=== PATIENT | female | born 1955 | race African-American/Black ===

== ENCOUNTER 2019-10-13 11:31 | Emergency (ER) | payer OTHER ==
[~2019-10-13] VITALS: Ht 152.4 cm; Wt 95.3 kg
[~2019-10-13 11:31] MED LIST: ALBU8.5H5 IH; ALBU8.5H7 IH; ALPR0.5T PO; ASPI-667 PO; BUDE0.5A3 IH; BUDE10.2 IH; CYCL10TA2 PO; DOCU-123 PO; FLUT1DIS5 IH; HYDR-3470 PO; Ipratropium/Albuterol Sulfate IH; LEVO500T51 PO; LEVO500T8 PO; NITR0.4T26 SL; NITR1PAT26 TD; Nicotine TD
--- NOTE | 2019-10-13 11:40 | NUR ---
Pt has not had medications for about 2 weeks. She has not checked BG in 2 weeks. Came into ER to have medications refilled. Pt VT=256/101 currently. Pt states she has a ENGLE rated @ 6:10. Also c/o dizziness, exp when she is up and walking around.
[2019-10-13 12:10] VITALS: BP 151/101
[2019-10-13 12:11] VITALS: BP 151/101
[2019-10-13 12:58] VITALS: BP 146/99
--- NOTE | 2019-10-13 12:59 | ER.PDOC ---
General Chief Complaint: Dyspnea/Respdistress Stated Complaint: SICK TRAVEL OUT OF US: No Time seen by MD: 12:51 Source: patient Exam Limitations: no limitations History of Present Illness Initial Comments Here for medication refill. She wants her inhalers, Metformin and Metoprolol refilled because she ran out for 2 Months. Associated Symptoms: denies symptoms Allergies: Coded Allergies: No Known Allergies (Unverified , 04/25/16) Home Meds Active Scripts [Ipratropium/Albuterol Sulfate] 3 ML AMPUL.NEB No Conflict Check, 3 ML IH RTQID Prov:STEPHANIE ABARCA MD 10/12/14 Docusate Sodium (COLACE) 100 Mg Capsule, 100 MG PO BID, #30 CAPSULE Prov:STEPHANIE ABARCA MD 10/12/14 Budesonide (PULMICORT) 0.5 Mg/2 Ml Ampul.neb, 0.5 MG IH BID, #30 BOTTLE Prov:STEPHANIE ABARCA MD 10/12/14 Alprazolam (XANAX) 0.5 Mg Tablet, 0.5 MG PO QID PRN for ANXIETY, #30 TABLET Prov:STEPHANIE ABARCA MD 10/12/14 Reported Medications Nitroglycerin (NITROGLYCERIN PATCH) 1 Each Patch.td24, 1 EACH TD DAILY 04/25/16 Budesonide/Formoterol Fumarate (SYMBICORT 160-4.5 MCG INHALER) 10.2 Gm Hfa.aer.ad, 2 PUFF IH BID 10/03/15 Albuterol Sulfate (PROAIR HFA) 8.5 Gm Hfa.aer.ad, 8.5 GM IH PRN PRN for SHORTNESS OF BREATH 10/03/15 Fluticasone/Salmeterol (ADVAIR 500-50 DISKUS) 1 Each Disk.w.dev, 1 PUFF IH BID 10/03/15 Aspirin (ASPIRIN) 81 Mg Tab.chew, 1 TAB PO DAILY, #90 TAB 3 Refills 06/07/14 Past Medical History Medical History: COPD, diabetes, hypertension Surgical History: cardiac cath, pacemaker/ICD Social History Alcohol Use: none Drug Use: none Review of Systems Constitutional: no symptoms reported EENTM: no symptoms reported Respiratory: no symptoms reported Cardiovascular: no symptoms reported Gastrointestinal: no symptoms reported All Other Systems: Reviewed and Negative Physical Exam General Appearance: No Apparent Distress Neck: Non-Tender, Full Range of Motion Respiratory: chest non-tender, lungs clear, normal breath sounds, no respiratory distress, no accessory muscle use CVS: reg rate & rhythm, no murmur, no gallop, pulses nml, nml capillary refill Gastrointestinal: Normal Bowel Sounds, No Organomegaly, No Pulsatile Mass, Non Tender Back: Normal Inspection Extremities: Normal Range of Motion 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 She told me that she has an appointment this week with a PCP. Course Sepsis Screening Results: Posi: POSITIVE SEPSIS RISK Vitals & review Data Vital Sign - Last 24 Hours 10/13/19 10/13/19 10/13/19 11:34 12:10 12:11 Temp 98.5 98.5 98.5 Pulse 60 60 60 Resp 22 22 22 B/P (MAP) 151/101 (118) Pulse Ox 99 99 O2 Delivery Room Air O2 Sat by Pulse Oximetry: 99 Departure Time of Disposition: 12:55 Disposition: 01 HOME, SELF-CARE Impression: Primary Impression: Uncontrolled diabetes mellitus Additional Impressions: Uncontrolled hypertension Non compliance with medical treatment Chronic obstructive pulmonary disease (COPD) Condition: Stable Referrals: SANDHYA MEEKS (PCP) PRIMARY CARE PROVIDER Additional Instructions: Metformin, Metoprolol and inhalers refilled. F/U with your PCP this week as scheduled. Duration or Time Spent with Pa: 20 mins Problem Qualifiers Primary Impression: Uncontrolled diabetes mellitus Diabetes mellitus type: other specified (including RONEL) Glycemic state: with hyperglycemia Qualified Codes: E13.65 - Other specified diabetes mellitus with hyperglycemia Additional Impressions: Chronic obstructive pulmonary disease (COPD) COPD type: unspecified COPD Qualified Codes: J44.9 - Chronic obstructive pulmonary disease, unspecified TUNG JONES MD Oct 13, 2019 12:59
== END 2019-10-13 13:10 | disposition home or self-care (01) ==
LOC: ER 11:31
DX: E11.65 Type 2 diabetes mellitus with hyperglycemia (principal); I10 Essential (primary) hypertension; J44.9 Chronic obstructive pulmonary disease, unspecified; Z76.0 Encounter for issue of repeat prescription; Z79.82 Long term (current) use of aspirin; Z79.899 Other long term (current) drug therapy; Z91.14 Patient's other noncompliance with medication regimen; Z91.19 Patient's noncompliance with other medical treatment and regimen; Z95.0 Presence of cardiac pacemaker
CPT/HCPCS: 99284

== ENCOUNTER 2019-10-30 09:48 | Emergency (ER) | payer OTHER ==
[~2019-10-30] VITALS: Ht 152.4 cm; Wt 95.3 kg
[2019-10-30 10:01] VITALS: BP 111/54
[2019-10-30 10:06] VITALS: BP 111/54
[2019-10-30] MEDS ORDERED: DUO 0.5-3(2.5) MG/3 ML IH STA (10:24)
[2019-10-30] MEDS ORDERED: SOLU-MEDROL IM STA (10:24)
[2019-10-30] MEDS ORDERED: DECADRON IH STA (10:24)
[2019-10-30] MEDS ORDERED: SOLU-MEDROL ONE (10:28)
[2019-10-30] MEDS ORDERED: DECADRON ONE (10:29)
[2019-10-30] MEDS ORDERED: DUO 0.5-3(2.5) MG/3 ML IH ONE (10:29)
--- NOTE | 2019-10-30 10:37 | PCM.EKG ---
[facility] Test Date: 2019-10-30 Test Time: 10:33:55 Pat Name: JAREN CURTIS Department: Room: Gender: F Refractory Specialist: [place] : 1955 Requested By: TUNG JONES Order Number: [id number] Reading MD: Tung JONES Measurements Intervals [place] Rate: 60 P: NM: 181 QRS: 74 QRSD: 94 T: 67 QT: 441 QTc: 441 Interpretive Statements Atrial-paced rhythm Consider left ventricular hypertrophy Abnrm T, consider ischemia, anterolateral lds No previous ECG available for comparison Electronically Signed On 11-01-2019 5:17:07 INFORMATION STRATEGIST by Tung JONES Please click the below link to view image of tracing.
--- NOTE | 2019-10-30 10:39 | ER.PDOC ---
General Chief Complaint: Requesting Medical Care Stated Complaint: DIFF BREATHING, CONGESTION, COUGH. FEVER. HP Time seen by MD: 10:37 Source: patient Exam Limitations: no limitations History of Present Illness Initial Comments Fever, cough and congestion for 3 days. Timing/Duration: gradual Severity: moderate Associated Symptoms: fever/chills, runny nose, cough Prior symptoms/Treatment: Similar symptoms previous Allergies: Coded Allergies: No Known Allergies (Unverified , 04/25/16) Home Meds Active Scripts [Ipratropium/Albuterol Sulfate] 3 ML AMPUL.NEB No Conflict Check, 3 ML IH RTQID Prov:STEPHANIE ABARCA MD 10/12/14 Docusate Sodium (COLACE) 100 Mg Capsule, 100 MG PO BID, #30 CAPSULE Prov:STEPHANIE ABARCA MD 10/12/14 Budesonide (PULMICORT) 0.5 Mg/2 Ml Ampul.neb, 0.5 MG IH BID, #30 BOTTLE Prov:STEPHANIE ABARCA MD 10/12/14 Alprazolam (XANAX) 0.5 Mg Tablet, 0.5 MG PO QID PRN for ANXIETY, #30 TABLET Prov:STEPHANIE ABARCA MD 10/12/14 Reported Medications Nitroglycerin (NITROGLYCERIN PATCH) 1 Each Patch.td24, 1 EACH TD DAILY 04/25/16 Budesonide/Formoterol Fumarate (SYMBICORT 160-4.5 MCG INHALER) 10.2 Gm Hfa.aer.ad, 2 PUFF IH BID 10/03/15 Albuterol Sulfate (PROAIR HFA) 8.5 Gm Hfa.aer.ad, 8.5 GM IH PRN PRN for SHORTNESS OF BREATH 10/03/15 Fluticasone/Salmeterol (ADVAIR 500-50 DISKUS) 1 Each Disk.w.dev, 1 PUFF IH BID 10/03/15 Aspirin (ASPIRIN) 81 Mg Tab.chew, 1 TAB PO DAILY, #90 TAB 3 Refills 06/07/14 Constitutional: see HPI EENTM: see HPI Respiratory: see HPI Cardiovascular: no symptoms reported Gastrointestinal: no symptoms reported All Other Systems: Reviewed and Negative Past Medical History Medical History: asthma, coronary artery disease, cardiac problems, COPD, diabetes, heart attack, hypertension, other Surgical History: cardiac cath, pacemaker/ICD Social History Alcohol Use: occassionally Drug Use: none Physical Exam General Appearance: alert, no distress Nose: rhinorrhea Neck: nml inspection, supple Respiratory: no resp.distress, wheezes Abdomen: non-tender, no organomegaly CVS: reg rate & rhythm, heart sounds nml Skin: color nml, no rash, warm/dry Extremities: non-tender, nml ROM, no pedal edema NEURO/PSYCH: oriented x 3, CN's nml as tested, motor nml, sensation nml, mood/affect nml Results/Orders Results/Orders Orders - TUNG JONES MD Cbc With Auto Diff (10/30/19 10:24) Comprehensive Metabolic Panel (10/30/19 10:24) Probnp B-Type Reduction Furnace Operator Helper (10/30/19 10:24) Troponin I (10/30/19 10:24) Blood Culture (10/30/19 10:24) Ekg-Routine (10/30/19 10:24) Xr Chest 2v (10/30/19 10:24) Ipratropium/Albuterol Sulfate (Duo 0.5-3 (10/30/19 10:24) Dexamethasone Sodium Phosphate (Decadron (10/30/19 10:24) Methylprednisolone Sod Succ (Solu-Medrol (10/30/19 10:24) Methylprednisolone Sod Succ (Solu-Medrol (10/30/19 10:28) Ipratropium/Albuterol Sulfate (Duo 0.5-3 (10/30/19 10:29) Dexamethasone Sodium Phosphate (Decadron (10/30/19 10:29) Arterial Blood Gas (10/30/19 10:35) Vital Signs Date Time Temp Pulse Resp B/P (MAP) Pulse Ox O2 Delivery O2 Flow Rate FiO2 10/30/19 10:44 61 20 99 10/30/19 10:44 61 20 97 10/30/19 10:06 98.8 60 20 10/30/19 10:01 98.8 60 20 111/54 (73) 96 Room Air 10/30/19 10:01 98.8 60 20 96 Administered Medications Medications (Trade) Dose Ordered Sig/Amanda Route PRN Reason Start Time Stop Time Status Last Admin Dose Admin Albuterol/ Ipratropium (Duo 0.5-3(2.5) Mg/3 ml) 3 ml STAT STAT IH 10/30/19 10:24 10/30/19 10:27 DC 10/30/19 10:39 3 ML Methylprednisolone Sodium Succinate (Solu-Medrol) 125 mg STAT STAT IM 10/30/19 10:24 10/30/19 10:27 DC 10/30/19 10:32 125 MG Laboratory Tests Test 10/30/19 10:36 10/30/19 10:50 White Blood Count 4.9 10^3/uL (4.5-11.0) Red Blood Count 6.31 10^6/uL (4.00-5.20) H Hemoglobin 15.8 g/dL (12.0-15.0) H Hematocrit 46.7 % (36.0-46.0) H Mean Corpuscular Volume 74.0 fL (78-100) L Mean Corpuscular Hemoglobin 25.0 pg (26-34) L Mean Corpuscular Hemoglobin Concent 33.8 g/dL (33-37) Red Cell Distribution Width 14.9 % (11.5-14.5) H Platelet Count 239 10^3/uL (150-400) Mean Platelet Volume 9.6 fL (7.8-11.0) Neutrophils (%) (Auto) 54.6 % (41.0-85.0) Lymphocytes (%) (Auto) 29.2 % (24.0-44.0) Monocytes (%) (Auto) 12.9 % (5.0-12.0) H Neutrophils # (Auto) 2.7 10^3/uL (1.8-7.7) Lymphocytes # (Auto) 1.4 10^3/uL (1.0-4.8) Monocytes # (Auto) 0.6 10^3/uL (0.3-0.8) Absolute Immature Granulocyte (auto 0.01 10^3 u/L (0-2) Absolute Eosinophils (auto) 0.1 10^3/uL (0.0-0.2) Immature Granulocytes % 0.20 % (0.00-0.50) Eosinophils % 2.5 % (0.0-5.0) Basophils % 0.6 % (0.0-0.2) H Basophils # 0.0 10^3/uL (0.0-0.1) Sodium Level 141 mmol/L (132-145) Potassium Level 3.4 mmol/L (3.6-5.2) L Chloride Level 102.0 mmol/L (96-109) Carbon Dioxide Level 28.2 mmol/L (20.0-32) Anion Gap 14.2 Blood Urea Nitrogen 19 mg/dL (7-18) H Creatinine 0.81 mg/dL (0.59-1.40) Estimated GFR () 86.1 (>/=60) BUN/Creatinine Ratio 23.0 Glucose Level 149 mg/dL (70-110) H Calcium Level 8.9 mg/dL (8.4-10.5) Total Bilirubin 0.3 mg/dL (0.2-1.0) Aspartate Amino Transferase (AST) 18 U/L (0-35) Alanine Aminotransferase (ALT) 25 U/L (12-78) Alkaline Phosphatase 76 U/L (50-136) Troponin I < 0.02 ng/mL (0.00-0.05) Pro-B-Type Natriuretic Peptide 341 pg/mL (0-125) H Total Protein 7.5 g/dL (6.4-8.2) Albumin 3.8 g/dL (3.4-5.0) Globulin 3.7 Blood Gas Sample Site LEFT RADIAL ARTERY Blood pH 7.470 (7.350-7.450) Blood Gas PCO2 34.7 mmHg (35.0-45.0) L Blood Gas PO2 64.6 mmHg (80.0-100.0) L Blood Gas HCO3 24.7 mmol/L (22.0-26.0) Blood Gas Base Excess 1.6 mmol/L (-2.0-2.0) Sacha Test POSITIVE Arterial Blood Oxygen Saturation 93.3 % (94.0-97.00) L Deoxyhemoglobin 6.7 % (0.0-5.0) H Carboxyhemoglobin 0.3 % (0.0-3.9) Methemoglobin 0.2 % (0.00-5.0) Total Hemoglobin 16.5 % (12.0-17.8) Total Oxygen Concentration 21.5 % (13.5-17.5) H Blood Gas Temperature 37.0 Oxygen Delivery Method ROOM AIR FiO2 21.0 % (20-101) Total Carbon Dioxide 25.8 mmol/L (23-27) EKG/XRAY/CT/US XRAY: chest (No active disease) Departure Time of Disposition: 11:34 Disposition: 01 HOME, SELF-CARE Impression: Primary Impression: COPD exacerbation Condition: Improved Referrals: FELICITA THOMAS (PCP) PRIMARY CARE PROVIDER Additional Instructions: Z pack Prednisone Mucinex DM OTC as directed Increase breathing treatments to every 4 hours for 1 week F/U with your PCP in 2-3 days Return to ED if worsening symptoms or concerns Duration or Time Spent with Pa: 45 mins KAREN,TUNG Richards MD Oct 30, 2019 10:39
[2019-10-30 10:45] LABS: BASOPHIL % 0.6 % (0.0-0.2); EOSINOPHIL # 0.1 10^3/uL (0.0-0.2); EOSINOPHIL % 2.5 % (0.0-5.0); LYMPHOCYTES # 1.4 10^3/uL (1.0-4.8); LYMPHOCYTES % 29.2 % (24.0-44.0); MONOCYTES # 0.6 10^3/uL (0.3-0.8); MONOCYTES % 12.9 % (5.0-12.0); NEUTROPHIL # 2.7 10^3/uL (1.8-7.7); NEUTROPHILS % 54.6 % (41.0-85.0); RED CELL DISTRIBUTION WIDTH 14.9 % (11.5-14.5)
[2019-10-30 11:01] LABS: ABG PCO2 34.7 mmHg (35.0-45.0); BE(B) 1.6 mmol/L (-2.0-2.0); HCO3act 24.7 mmol/L (22.0-26.0); pO2 64.6 mmHg (80.0-100.0)
--- NOTE | 2019-10-30 11:06 | DIREP ---
PROCEDURE:CHEST 2 VIEWS COMPARISON:[facility], CR, XRAY CHEST SINGLE VW, 01/09/2017, 11:04 PM. INDICATIONS:Cough FINDINGS: LUNGS/PLEURA:No significant pulmonary parenchymal abnormalities. No effusions. VASCULATURE:Normal. Unremarkable pulmonary vasculature. Atherosclerotic disease of the thoracic aorta is noted. CARDIAC:Normal. No cardiac silhouette abnormality or cardiomegaly. Pacemaker leads are unchanged. MEDIASTINUM:Normal. No visible mass or adenopathy. BONES:Mild thoracic spondylosis. OTHER:Negative. CONCLUSION: 1. No active cardiopulmonary disease demonstrated. Dictated by: Demetrius Akhtar M.D. on 10/30/2019 at 11:03 AM
[2019-10-30 11:13] LABS: ALANINE AMINOTRANSFERASE(ML) 25 U/L (12-78); ALKALINE PHOSPHATASE 76 U/L (50-136); ASPARTATE AMINO TRANSFERASE 18 U/L (0-35); CALCIUM 8.9 mg/dL (8.4-10.5); CARBON DIOXIDE 28.2 mmol/L (20.0-32); GLUCOSE 149 mg/dL (70-110)
== END 2019-10-30 11:50 | disposition home or self-care (01) ==
LOC: ER 09:48
DX: J44.1 Chronic obstructive pulmonary disease with (acute) exacerbation (principal); I25.2 Old myocardial infarction; I25.10 Atherosclerotic heart disease of native coronary artery without angina pectoris; I10 Essential (primary) hypertension; E11.9 Type 2 diabetes mellitus without complications; Z79.82 Long term (current) use of aspirin; Z79.899 Other long term (current) drug therapy; Z95.0 Presence of cardiac pacemaker
CPT/HCPCS: 36415; 36600; 71046; 80053; 82803; 83880; 84484; 85025; 87040 ×2; 93005; 94640; 96372; 99285; J1100; J2930; J7620

== ENCOUNTER 2020-06-12 11:30 | Emergency (ER) | payer MEDICARE, OTHER ==
[~2020-06-12] VITALS: Ht 152.4 cm; Wt 81.6 kg
[2020-06-12 11:45] VITALS: BP 124/88
--- NOTE | 2020-06-12 11:45 | NUR ---
ARRIVAL PATIENT ARRIVED TO ED5 AMBULATORY, C/O OF COUGH AND SHORTNESS OF BREATH FOR THE PAST COUPLE OF DAYS, DOES HAVE A HISTORY OF COPD, CALLED HER PCP AND WAS TOLD TO COME TO THE ED FOR EVAL BY THE EDP.
[2020-06-12] MEDS ORDERED: SOLU-MEDROL IV STA (11:49)
[2020-06-12] MEDS ORDERED: DECADRON IH STA (11:49)
[2020-06-12] MEDS ORDERED: DUO 0.5-3(2.5) MG/3 ML IH STA (11:49)
--- NOTE | 2020-06-12 11:54 | ER.PDOC ---
General Chief Complaint: Dyspnea/Respdistress Stated Complaint: SOB/COPD Time seen by MD: 11:53 Source: patient Exam Limitations: no limitations History of Present Illness Initial Comments SOB and cough for 2 days. Patient has COPD with occasional exacerbation. No contact with a person positive for COVID-19. Severity: moderate Prior Episodes/Possible Cause: occasional episodes, chronic episodes Modifying Factors: improves with albuterol nebulizer Associated Symptoms: cough, wheezing Prior symptoms/Treatment: Similar symptoms previous Allergies: Coded Allergies: No Known Allergies (Unverified , 04/25/16) Home Meds Active Scripts [Ipratropium/Albuterol Sulfate] 3 ML AMPUL.NEB No Conflict Check, 3 ML IH RTQID Prov:STEPHANIE ABARCA MD 10/12/14 Docusate Sodium (COLACE) 100 Mg Capsule, 100 MG PO BID, #30 CAPSULE Prov:STEPHANIE ABARCA MD 10/12/14 Budesonide (PULMICORT) 0.5 Mg/2 Ml Ampul.neb, 0.5 MG IH BID, #30 BOTTLE Prov:STEPHANIE ABARCA MD 10/12/14 Alprazolam (XANAX) 0.5 Mg Tablet, 0.5 MG PO QID PRN for ANXIETY, #30 TABLET Prov:STEPHANIE ABARCA MD 10/12/14 Reported Medications Nitroglycerin (NITROGLYCERIN PATCH) 1 Each Patch.td24, 1 EACH TD DAILY 04/25/16 Budesonide/Formoterol Fumarate (SYMBICORT 160-4.5 MCG INHALER) 10.2 Gm Hfa.aer.ad, 2 PUFF IH BID 10/03/15 Albuterol Sulfate (PROAIR HFA) 8.5 Gm Hfa.aer.ad, 8.5 GM IH PRN PRN for SHORTNESS OF BREATH 10/03/15 Fluticasone/Salmeterol (ADVAIR 500-50 DISKUS) 1 Each Disk.w.dev, 1 PUFF IH BID 10/03/15 Aspirin (ASPIRIN) 81 Mg Tab.chew, 1 TAB PO DAILY, #90 TAB 3 Refills 06/07/14 Past Medical History Medical History: cardiac problems, COPD, diabetes Surgical History: pacemaker/ICD Social History Alcohol Use: none Drug Use: none Review of Systems Constitutional: no symptoms reported Respiratory: see HPI Cardiovascular: no symptoms reported Gastrointestinal: no symptoms reported Genitourinary: no symptoms reported Musculoskeletal: no symptoms reported All Other Systems: Reviewed and Negative Physical Exam General Appearance: Mild Distress Neck: Non-Tender, Full Range of Motion, Supple, Normal Inspection Respiratory: chest non-tender, respiratory distress, decreased breath sounds, prolonged expirations, wheezing, expiration Cardiovascular: Normal Peripheral Pulses, Regular Rate, Rhythm, No Edema, No Gallop, No JVD, No Murmur Gastrointestinal: Normal Bowel Sounds, No Organomegaly, No Pulsatile Mass, Non Tender, Soft Extremities: Normal Range of Motion, Non-Tender, Normal Inspection, No Pedal Edema, No Calf Tenderness, Normal Capillary Refill 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 (06/12/20 11:49) Ekg-Routine (06/12/20 11:49) Ipratropium/Albuterol Sulfate (Duo 0.5-3 (06/12/20 11:49) Dexamethasone Sodium Phosphate (Decadron (06/12/20 11:49) Methylprednisolone Sod Succ (Solu-Medrol (06/12/20 11:49) Ipratropium/Albuterol Sulfate (Duo 0.5-3 (06/12/20 12:03) Dexamethasone Sodium Phosphate (Decadron (06/12/20 12:03) Methylprednisolone Sod Succ (Solu-Medrol (06/12/20 12:12) Levalbuterol Hcl (Xopenex) (06/12/20 13:03) Levalbuterol Hcl (Xopenex) (06/12/20 13:06) Vital Signs Date Time Temp Pulse Resp B/P (MAP) Pulse Ox O2 Delivery O2 Flow Rate FiO2 06/12/20 13:11 63 18 98 06/12/20 13:11 62 18 96 06/12/20 12:59 97.2 67 24 132/105 (114) 97 Room Air 06/12/20 12:12 61 20 97 06/12/20 12:12 60 18 98 06/12/20 11:45 97.2 60 24 97 06/12/20 11:45 97.2 60 24 124/88 (100) 97 Room Air 06/12/20 11:45 97.2 60 24 Administered Medications Medications (Trade) Dose Ordered Sig/Amanda Route PRN Reason Start Time Stop Time Status Last Admin Dose Admin Albuterol/ Ipratropium (Duo 0.5-3(2.5) Mg/3 ml) 3 ml STAT STAT IH 06/12/20 11:49 06/12/20 11:52 DC 06/12/20 12:08 3 ML Levalbuterol HCl (Xopenex) 1.25 mg STAT STAT IH 06/12/20 13:03 06/12/20 13:04 DC 06/12/20 13:11 1.25 MG Methylprednisolone Sodium Succinate (Solu-Medrol) 125 mg STAT STAT IV 06/12/20 11:49 06/12/20 11:52 DC 06/12/20 12:24 125 MG Laboratory Tests Test 06/12/20 12:00 06/12/20 12:12 Blood Gas Sample Site RT RADIAL ARTERY Blood pH 7.383 (7.350-7.450) Blood Gas PCO2 36.2 mmHg (35.0-45.0) Blood Gas PO2 74.8 mmHg (80.0-100.0) L Blood Gas HCO3 21.1 mmol/L (22.0-26.0) L Blood Gas Base Excess -3.3 mmol/L (-2.0-2.0) L Sacha Test POSITIVE Arterial Blood Oxygen Saturation 94.6 % (94.0-97.00) Deoxyhemoglobin 5.2 % (0.0-5.0) H Carboxyhemoglobin 3.6 % (0.0-3.9) Methemoglobin 0.1 % (0.00-5.0) Total Hemoglobin 15.8 % (12.0-17.8) Total Oxygen Concentration 20.2 % (13.5-17.5) H Blood Gas Temperature 37 Oxygen Delivery Method ROOM AIR FiO2 21 % (20-101) Total Carbon Dioxide 22.2 mmol/L (23-27) L White Blood Count 6.2 10^3/uL (4.5-11.0) Red Blood Count 5.90 10^6/uL (4.00-5.20) H Hemoglobin 15.0 g/dL (12.0-15.0) Hematocrit 44.8 % (36.0-46.0) Mean Corpuscular Volume 75.9 fL (78-100) L Mean Corpuscular Hemoglobin 25.4 pg (26-34) L Mean Corpuscular Hemoglobin Concent 33.5 g/dL (33-36.5) Red Cell Distribution Width 13.9 % (11.5-14.5) Platelet Count 202 10^3/uL (150-400) Mean Platelet Volume 8.8 fL (7.8-11.0) Neutrophils (%) (Auto) 52.7 % (41.0-85.0) Lymphocytes (%) (Auto) 36.0 % (24.0-44.0) Monocytes (%) (Auto) 6.5 % (5.0-12.0) Neutrophils # (Auto) 3.3 10^3/uL (1.8-7.7) Lymphocytes # (Auto) 2.22 10^3/uL1 (1.0-4.8) Monocytes # (Auto) 0.4 10^3/uL (0.3-0.8) Absolute Immature Granulocyte (auto 0.01 10^3 u/L (0-2) Absolute Eosinophils (auto) 0.3 10^3/uL (0.0-0.2) H Immature Granulocytes % 0.20 % (0.00-0.50) Eosinophils % 4.1 % (0.0-5.0) Basophils % 0.5 % (0.0-0.2) H Basophils # 0.0 10^3/uL (0.0-0.1) Prothrombin Time 10.4 SEC (9.3-11.3) Prothrombin Time INR (Non-Therap) 1.0 Activated Partial Thromboplast Time 23.8 SEC (24.67-30.72) Sodium Level 139 mmol/L (132-145) Potassium Level 3.7 mmol/L (3.6-5.2) Chloride Level 107.0 mmol/L (96-109) Carbon Dioxide Level 21.5 mmol/L (20.0-32) Anion Gap 14.2 Blood Urea Nitrogen 10 mg/dL (7-18) Creatinine 1.04 mg/dL (0.59-1.40) Estimated GFR () 64.4 (>/=60) Est GFR (CKD-EPI)(Non-Afr [place]ian) 53.2 (>/=60) BUN/Creatinine Ratio 9.0 Glucose Level 182 mg/dL (70-110) H Calcium Level 8.9 mg/dL (8.4-10.5) Total Bilirubin 0.2 mg/dL (0.2-1.0) Aspartate Amino Transferase (AST) 19 U/L (0-35) Alanine Aminotransferase (ALT) 24 U/L (12-78) Alkaline Phosphatase 63 U/L (50-136) Total Creatine Kinase 511 U/L (26-192) H Creatine Kinase MB 4.3 ng/mL (0.5-3.6) H Troponin I < 0.02 ng/mL (0.00-0.05) Pro-B-Type Natriuretic Peptide 133 pg/mL (0-125) H Total Protein 6.8 g/dL (6.4-8.2) Albumin 3.4 g/dL (3.4-5.0) Globulin 3.4 Progress Progress Patient feeling better, wheezes resolved. Patient feeling better to go home. SOB improved. Labs are unremarkable. EKG/XRAY/CT/US EKG: NSR XRAY: chest (No active disease) Departure Time of Disposition: 13:27 Disposition: 01 HOME, SELF-CARE Impression: Primary Impression: COPD exacerbation Condition: Improved Referrals: FELICITA THOMAS (PCP) PRIMARY CARE PROVIDER Additional Instructions: Z pack Prednisone Mucinex DM OTC as directed Albuterol HHN Nebulized F/U with your PCP in 2-3 days Return to ED if worsening symptoms or concerns Duration or Time Spent with Pa: 60 min TUNG JONES MD Jun 12, 2020 11:54
--- NOTE | 2020-06-12 12:02 | PCM.EKG ---
[facility] Test Date: 2020-06-12 Test Time: 11:48:07 Pat Name: JAREN CURTIS Department: Room: Gender: F Endoscopy Tech: : 1955 Requested By: TUNG JONES Order Number: [id number] Reading MD: Tung JONES Measurements Intervals [place] Rate: 60 P: IN: 182 QRS: 60 QRSD: 106 T: 77 QT: 421 QTc: 421 Interpretive Statements Atrial-paced complexes Nonspecific T abnrm, anterolateral leads ST elevation, consider inferior injury Compared to ECG 10/30/2019 10:33:55 ST (T wave) deviation now present Myocardial infarct finding now present Ventricular-paced complex(es) or rhythm no longer present Possible ischemia no longer present Electronically Signed On 06-15-2020 6:48:36 CDT by Tung JONES Please click the below link to view image of tracing.
[2020-06-12] MEDS ORDERED: DUO 0.5-3(2.5) MG/3 ML IH ONE (12:03)
[2020-06-12] MEDS ORDERED: DECADRON ONE (12:03)
[2020-06-12 12:12] LABS: ABG PCO2 36.2 mmHg (35.0-45.0); ABG PH 7.383 (7.350-7.450); BE(B) -3.3 mmol/L (-2.0-2.0); HCO3act 21.1 mmol/L (22.0-26.0); pO2 74.8 mmHg (80.0-100.0)
[2020-06-12] MEDS ORDERED: SOLU-MEDROL ONE (12:12)
[2020-06-12 12:28] LABS: BASOPHIL % 0.5 % (0.0-0.2); EOSINOPHIL # 0.3 10^3/uL (0.0-0.2); EOSINOPHIL % 4.1 % (0.0-5.0); LYMPHOCYTES # 2.22 10^3/uL1 (1.0-4.8); MEAN CORP HGB 25.4 pg (26-34); MONOCYTES # 0.4 10^3/uL (0.3-0.8); MONOCYTES % 6.5 % (5.0-12.0); NEUTROPHIL # 3.3 10^3/uL (1.8-7.7); NEUTROPHILS % 52.7 % (41.0-85.0); PLATELET COUNT 202 10^3/uL (150-400); RED CELL DISTRIBUTION WIDTH 13.9 % (11.5-14.5)
--- NOTE | 2020-06-12 12:46 | DIREP ---
PROCEDURE:CHEST 1 VIEW COMPARISON:[facility], CR, XRAY CHEST 2 VWS, 10/30/2019, 10:30 AM. INDICATIONS:Shortness of breath FINDINGS: LUNGS/PLEURA:No significant pulmonary parenchymal abnormalities. No effusions. Left basilar atelectasis. Retrocardiac infiltrate is difficult to exclude due to technique. VASCULATURE:Normal. Unremarkable pulmonary vasculature. Atherosclerotic disease of the thoracic aorta is noted. CARDIAC:Normal. No cardiac silhouette abnormality or cardiomegaly. Pacemaker leads are unchanged. MEDIASTINUM:Normal. No visible mass or adenopathy. BONES:Mild thoracic spondylosis. OTHER:Negative. CONCLUSION:No change the prior. Stable findings as above. Dictated by: Lennox Wylie MD on 06/12/2020 at 12:40 PM
[2020-06-12 12:56] LABS: ALANINE AMINOTRANSFERASE(ML) 24 U/L (12-78); ALKALINE PHOSPHATASE 63 U/L (50-136); ASPARTATE AMINO TRANSFERASE 19 U/L (0-35); CALCIUM 8.9 mg/dL (8.4-10.5); CARBON DIOXIDE 21.5 mmol/L (20.0-32); GLUCOSE 182 mg/dL (70-110)
[2020-06-12 12:59] VITALS: BP 132/105
[2020-06-12] MEDS ORDERED: XOPENEX IH STA (13:03)
[2020-06-12] MEDS ORDERED: XOPENEX IH ONE (13:06)
== END 2020-06-12 13:28 | disposition home or self-care (01) ==
LOC: ER 11:30
DX: J44.1 Chronic obstructive pulmonary disease with (acute) exacerbation (principal); E11.9 Type 2 diabetes mellitus without complications; Z79.82 Long term (current) use of aspirin; Z79.899 Other long term (current) drug therapy; Z95.0 Presence of cardiac pacemaker
CPT/HCPCS: 36415; 36600; 71045; 80053; 82550; 82553; 82803; 83880; 84484; 85025; 85610; 85730; 87040 ×2; 93005; 94640 ×2; 96374; 99285; J1100; J2930; J7620

== ENCOUNTER → 2020-11-19 | Outpatient (CLI) | payer MEDICARE, MEDICAID ==
[2020-11-19 15:22] LABS: BASOPHIL % 0.3 % (0.0-0.2); EOSINOPHIL # 0.2 10^3/uL (0.0-0.2); EOSINOPHIL % 2.5 % (0.0-5.0); LYMPHOCYTES # 2.24 10^3/uL1 (1.0-4.8); LYMPHOCYTES % 32.9 % (24.0-44.0); MEAN CORP HGB 25.4 pg (26-34); MONOCYTES # 0.6 10^3/uL (0.3-0.8); MONOCYTES % 8.5 % (5.0-12.0); NEUTROPHIL # 3.8 10^3/uL (1.8-7.7); NEUTROPHILS % 55.7 % (41.0-85.0); PLATELET COUNT 216 10^3/uL (150-400); RED CELL DISTRIBUTION WIDTH 14.8 % (11.5-14.5)
[2020-11-19 16:53] LABS: ALANINE AMINOTRANSFERASE(ML) 37 U/L (12-78); ALKALINE PHOSPHATASE 67 U/L (50-136); ASPARTATE AMINO TRANSFERASE 20 U/L (0-35); CALCIUM 8.9 mg/dL (8.4-10.5); CARBON DIOXIDE 26.2 mmol/L (20.0-32); CHOLESTEROL 177 mg/dL (120-240); GLUCOSE 201 mg/dL (70-110); HDL CHOLESTEROL 70 mg/dL (32-96)
== END | disposition home or self-care (01) ==
LOC: LAB 15:01
PROVIDERS: ATTEND Internal Medicine
DX: I10 Essential (primary) hypertension (principal); I25.10 Atherosclerotic heart disease of native coronary artery without angina pectoris; I73.9 Peripheral vascular disease, unspecified; E11.9 Type 2 diabetes mellitus without complications; E78.5 Hyperlipidemia, unspecified; R07.9 Chest pain, unspecified
CPT/HCPCS: 36415; 80053; 80061; 82550; 83036; 84439; 84443; 84484; 85025; 85651; 86677

== ENCOUNTER → 2021-12-25 | Outpatient (CLI) | payer MEDICARE, MEDICAID ==
[~2021-12-25] MED LIST changes: +CYCL10TA19 PO; -CYCL10TA2 PO; -LEVO500T8 PO; +LEVO500T9 PO
[2021-12-25 12:04] LABS: BASOPHIL % 0.4 % (0.0-0.2); EOSINOPHIL # 0.1 10^3/uL (0.0-0.2); EOSINOPHIL % 1.9 % (0.0-5.0); LYMPHOCYTES # 2.01 10^3/uL1 (1.0-4.8); MEAN CORP HGB 24.7 pg (26-34); MONOCYTES # 0.4 10^3/uL (0.3-0.8); MONOCYTES % 7.2 % (5.0-12.0); NEUTROPHIL # 2.6 10^3/uL (1.8-7.7); NEUTROPHILS % 51.3 % (41.0-85.0); PLATELET COUNT 246 10^3/uL (150-400); RED CELL DISTRIBUTION WIDTH 14.9 % (11.5-14.5)
[2021-12-25 14:35] LABS: CARBON DIOXIDE 26.8 mmol/L (20.0-32)
== END | disposition home or self-care (01) ==
LOC: LAB 11:36
PROVIDERS: ATTEND Internal Medicine
DX: I10 Essential (primary) hypertension (principal); I25.10 Atherosclerotic heart disease of native coronary artery without angina pectoris; E11.43 Type 2 diabetes mellitus with diabetic autonomic (poly)neuropathy; M25.50 Pain in unspecified joint
CPT/HCPCS: 36415; 80053; 80061; 80307; 83036; 84439; 84443; 85025

== ENCOUNTER → 2022-01-05 | Outpatient (CLI) | payer MEDICAID, MEDICARE ==
--- NOTE | 2022-01-06 09:20 | DIREP ---
PROCEDURE:Digital Screening Mammogram TECHNIQUE:MLO and CC digital images of each breast are provided. Computer Assisted Detection (CAD) was utilized. COMPARISON:None. INDICATIONS:SCREENING BREAST COMPOSITION:Almost entirely fatty. FINDINGS:There are no grouped microcalcifications, masses, or architectural distortions to suggest malignancy. IMPRESSION:No mammographic evidence of malignancy. RECOMMENDATIONS:Annual Screening Mammography per [employer] guidelines. OVERALL FINAL ASSESSMENT:BI-RADS 1 - Negative Mammogram Note: This facility participates in a mammography screening patient reminder system. Dictated by: Arpan Frazier M.D. on 01/06/2022 at 09:17 AM
== END | disposition home or self-care (01) ==
LOC: RAD 13:45
PROVIDERS: ATTEND Internal Medicine
DX: Z12.31 Encounter for screening mammogram for malignant neoplasm of breast (principal)
CPT/HCPCS: 77067

== ENCOUNTER → 2022-03-15 | Outpatient (CLI) | payer MEDICARE ==
[~2022-03-15] MED LIST changes: +ACET1TAB57 PO; +ALPR1TAB2 PO; +ATOR40TA PO; +CITA40TA6 PO; +FURO40TA4 PO; +GLIP5TAB10 PO; +INSU100I13 SQ; +MELO15TA24 PO; +METF10007 PO
--- NOTE | 2022-03-15 15:40 | DIREP ---
PROCEDURE:CTA HEAD NECK WITH CONTRAST COMPARISON:None. INDICATIONS:G45.9 TRANSIENT CEREBRAL ISCHEMIC ATTACK TECHNIQUE:After obtaining the patient's consent, CTA images of the head and neck were obtained with non-ionic contrast, including multi-planar/3-D imaging to optimize visualization of vascular anatomy. FINDINGS: NECK CTA: AORTIC ARCH:Normal configuration. RIGHT CAROTID SYSTEM:Unremarkable. LEFT CAROTID SYSTEM:Plaque causes 10% narrowing of the distal common carotid artery. VERTEBRAL ARTERIES: Unremarkable. NECK TISSUES:Unremarkable. LUNGS:Unremarkable. MEDIASTINUM:Unremarkable. BONE:Unremarkable. HEAD CTA: INTERNAL CAROTIDS:Calcified and noncalcified plaque causes 10-20% narrowing of the origin of the right internal carotid artery and 10% narrowing of the origin of the left internal carotid artery. ANTERIOR CEREBRALS:Unremarkable. MIDDLE CEREBRALS:Unremarkable. VERTEBRALS/BASILAR:Unremarkable. POSTERIOR CEREBRALS:Unremarkable. PCOMM'S:Present bilaterally. CONCLUSION:Mild scattered calcified and noncalcified atherosclerotic plaque formation in the common and internal carotid arteries with no hemodynamically significant stenosis. Dictated by: Mingo Levine M.D. on 03/15/2022 at 03:27 PM
== END | disposition home or self-care (01) ==
LOC: RAD 08:51
PROVIDERS: ATTEND Internal Medicine
DX: I65.23 Occlusion and stenosis of bilateral carotid arteries (principal)
CPT/HCPCS: 36415; 70496; 70498; 82565; Q9965

== ENCOUNTER → 2022-03-23 | Day surgery (SDC) | payer MEDICARE ==
[2022-03-17 09:55] VITALS: BP 125/81
--- NOTE | 2022-03-17 10:23 | PCM.EKG ---
[facility] Test Date: 2022-03-17 Test Time: 10:05:38 Pat Name: JAREN CURTIS Department: Room: Gender: F Gill Box Operator: ANDRADE : 1955 Requested By: LARISSA BECKER Order Number: [id number] Reading MD: Adolfo Rao Measurements Intervals [place] Rate: 60 P: [place]: 224 QRS: -12 QRSD: 96 T: 10 QT: 432 QTc: 432 Interpretive Statements Electronic atrial pacemaker T wave abnormality, consider anterior ischemia Compared to ECG 06/12/2020 11:48:07 T-wave abnormality now present Possible ischemia now present ST (T wave) deviation no longer present Myocardial infarct finding no longer present Electronically Signed On 03-18-2022 8:17:33 CDT by Adolfo Rao Please click the below link to view image of tracing.
[2022-03-17 10:27] LABS: BASOPHIL % 0.3 % (0.0-0.2); EOSINOPHIL # 0.1 10^3/uL (0.0-0.2); EOSINOPHIL % 1.6 % (0.0-5.0); LYMPHOCYTES # 2.12 10^3/uL1 (1.0-4.8); MEAN CORP HGB 24.7 pg (26-34); MONOCYTES # 0.4 10^3/uL (0.3-0.8); MONOCYTES % 7.7 % (5.0-12.0); NEUTROPHIL # 3.1 10^3/uL (1.8-7.7); NEUTROPHILS % 53.4 % (41.0-85.0); PLATELET COUNT 209 10^3/uL (150-400); RED CELL DISTRIBUTION WIDTH 13.3 % (11.5-14.5)
[2022-03-17 10:49] LABS: CARBON DIOXIDE 28.8 mmol/L (20.0-32)
[~2022-03-23] VITALS: Ht 152.4 cm; Wt 97.1 kg
[~2022-03-23] MED LIST changes: +ANCEF IM ONE; +ANCEF ONE; +DIPRIVAN IV ONE; +LACTATED RINGERS 1,000 ML IV SCH; +SUBLIMAZE ONE; +SUPREP BOWEL PREP KIT PO ONE; +VERSED ONE; +XYLOCAINE 2% 5ML VIAL ONE
[2022-03-23 06:55] VITALS: BP 129/78
[2022-03-23 12:20] VITALS: BP 94/67
[2022-03-23 12:35] VITALS: BP 108/71
[2022-03-23 12:50] VITALS: BP 117/63
[2022-03-23 13:02] VITALS: BP 121/81
--- NOTE | 2022-03-23 14:36 | PRM.OPH ---
OPERATIVE REPORT OPERATIVE REPORT Indications: Patient has a history of reflux, and is age-appropriate to proceed with screening colonoscopy. Preoperative diagnosis: History of reflux, screening colonoscopy Postoperative diagnosis: Evidence of reflux, with irregularity of the GE junction, mild gastritis at the fundus, gastric polyp, polyp near the cecum, and at 62 cm on the colonoscopy, and mild early diverticulosis Procedures: EGD with biopsy, colonoscopy with biopsy Surgeon: Lynn Lo MD Anesthesia: Lew Escoto CRNA, [place] Specimen: EGD specimens included GE junction x4 quadrants,[place]cis[place] for H. pylori, gastric polyp, and patchy erythema in the antrum. Biopsies from the colonoscopy include a polyp at the cecum, and the polyp at 62 cm EBL: Trace of biopsy sites Complications: None Technique of procedure: After consent was reviewed and all questions answered, the patient was taken the operating room and placed in the gurney on the left lateral decubitus position. A bite block was placed. Supplemental oxygen was given. The staff in the room underwent a timeout to verify we had the appropriate patient and planned procedure.Anesthesia and sedation was given per anesthesia. The lubricated EGD scope was passed through the mouth down the esophagus without difficulty and into the stomach. There was evidence of reflux, with a rather irregular GE junction. As I entered, there was some erythema noted with some gastritis in the fundus. Down by the pylorus, it appeared fairly normal, and was passed into the small bowel without difficulty. Small bowel was normal. Upon withdrawal, the pylorus appeared normal, but there was some patchy erythema that was mild in the antrum. This was biopsied. Biopsies were taken at the incisura for H. pylori also. On retroflexion, biopsies were taken at the fundus where there appeared to be some gastritis.There was also a gastric polyp that was biopsied and removed. The GE junction was biopsied x4 quadrants. The scope was then removed on suction. The bed was rotated in the room, and a rectal exam was performed. Mild hemorrhoids were noted, but no other abnormalities. The lubricated colonoscope was gently inserted into the rectum and passed without significant difficulty to the cecum. Mild external pressure was utilized at times to advance the scope. a polpyp was noted at the cecum, which was biopsied, the vascular supply appeared to be destroyed. A polypectomy was also performed on a colon polyp at 62 cm. The rest the mucosa was examined carefully and closely without any other significant abnormalities, other than some very early mild diverticulosis. Patient appeared to tolerate the procedure well. All counts were correct at the end of the procedure. LYNN LO MD March 23, 2022 14:36
== END | disposition home or self-care (01) ==
LOC: SDC 06:55
PROVIDERS: ATTEND Surgery
DX: K59.00 Constipation, unspecified (principal); K21.9 Gastro-esophageal reflux disease without esophagitis; D12.4 Benign neoplasm of descending colon; K31.7 Polyp of stomach and duodenum; K57.30 Diverticulosis of large intestine without perforation or abscess without bleeding; K52.9 Noninfective gastroenteritis and colitis, unspecified; K29.50 Unspecified chronic gastritis without bleeding; K31.89 Other diseases of stomach and duodenum; I10 Essential (primary) hypertension; E11.9 Type 2 diabetes mellitus without complications; G43.909 Migraine, unspecified, not intractable, without status migrainosus; E78.5 Hyperlipidemia, unspecified; F41.9 Anxiety disorder, unspecified; F32.A Depression, unspecified; F17.210 Nicotine dependence, cigarettes, uncomplicated; I71.9 Aortic aneurysm of unspecified site, without rupture; I73.9 Peripheral vascular disease, unspecified; E78.00 Pure hypercholesterolemia, unspecified; G35 Multiple sclerosis; Z79.899 Other long term (current) drug therapy; Z98.890 Other specified postprocedural states; Z80.0 Family history of malignant neoplasm of digestive organs; Z82.49 Family history of ischemic heart disease and other diseases of the circulatory system; Z83.3 Family history of diabetes mellitus; Z90.721 Acquired absence of ovaries, unilateral; Z79.84 Long term (current) use of oral hypoglycemic drugs; Z79.4 Long term (current) use of insulin
CPT/HCPCS: 36415; 43239; 45380; 80053; 82948 ×2; 85025; 85610; 85730; 88305; 93005; J0690; J2001; J2250; J3010; J3490

== ENCOUNTER → 2022-07-15 | Outpatient (CLI) | payer MEDICARE ==
[~2022-07-15] MED LIST changes: -ANCEF IM ONE; -ANCEF ONE; -DIPRIVAN IV ONE; -LACTATED RINGERS 1,000 ML IV SCH; +LEVO-16 PO; -LEVO500T9 PO; -SUBLIMAZE ONE; -SUPREP BOWEL PREP KIT PO ONE; -VERSED ONE; -XYLOCAINE 2% 5ML VIAL ONE
--- NOTE | 2022-07-16 10:27 | DIREP ---
PROCEDURE:BONE DENSITY AXIAL INDICATIONS:Z13.820 SCREENING FOR OSTEOPOROSIS COMPARISON:None. FINDINGS: Proximal right femur bone mineral density (BMD) (g/cm2):1.146 Right Femur T-score (standard deviation relative to young adult mean BMD):1.1 Right Femur Z-score (standard deviation relative to age-matched control group): 1.7 Proximal left femur bone mineral density (BMD) (g/cm2):1.084 Left Femur T-score (standard deviation relative to young adult mean BMD):0.906 Left Femur Z-score (standard deviation relative to age-matched control group): -0.9 Lumbar (L1-L4) bone mineral density (BMD) (g/cm2):1.204 Lumbar T-score (standard deviation relative to young adult mean BMD):0.1 Lumbar Z-score (standard deviation relative to age-matched control group):0.6 VFA T8-L3: Normal with no Vertebral Deformity FRAX 10-Year Probability of Fracture: Major Osteoporotic Fracture:N/A Hip Fracture:N/A Change since prior exam (%): Femur:Not applicable. Spine:Not applicable. Change since oldest prior exam (%): Femur:Not applicable. Spine:Not applicable. CONCLUSION: 1. Normal bone mineral density of the lumbar spine and proximal femora by WHO criteria. 2.Ten year probability of fracture (FRAX results): Major osteoporotic fracture-9.3%; hip fracture-0.6%. *Note: The Z-score is provided for informational purposes. The T-score is preferable for clinical decisions. When comparing exams, a change of >4% is considered statistically significant. SUGGESTED RECOMMENDATIONS: Normal & Osteopenia:Consideration should be given to use of calcium supplementation, daily multiple vitamins and adequate exercise, as preventive measures against osteoporosis, if clinically indicated. Osteoporosis & Severe Osteoporosis:In addition to the above, consideration should be given to medical therapy against osteoporosis, if clinically indicated. Dictated by: Ken Mondragon M.D. on 07/16/2022 at 10:21 AM
== END | disposition home or self-care (01) ==
LOC: BD 11:16
PROVIDERS: ATTEND Internal Medicine
DX: Z13.820 Encounter for screening for osteoporosis (principal); M85.88 Other specified disorders of bone density and structure, other site
CPT/HCPCS: 77080

== ENCOUNTER 2023-08-11 15:37 | Emergency (ER) | payer MEDICARE ==
[~2023-08-11] VITALS: Ht 152.4 cm; Wt 108.9 kg
[~2023-08-11 15:37] MED LIST changes: -GLIP5TAB10 PO; +GLIP5TAB19 PO
[2023-08-11 15:46] VITALS: BP 129/92; PULSE 81; RESP 18; TEMP 98; O2SAT 97
[2023-08-11 16:21] LABS: BASOPHIL % 0.3 % (0.0-0.2); EOSINOPHIL # 0.1 10^3/uL (0.0-0.2); EOSINOPHIL % 0.6 % (0.0-5.0); HEMATOCRIT(ML) 44.2 % (36.0-46.0); HEMOGLOBIN 14.5 g/dL (12.0-15.0); LYMPHOCYTES # 2.49 10^3/uL1 (1.0-4.8); LYMPHOCYTES % 32.3 % (24.0-44.0); MEAN CORP HGB 23.5 pg (26-34); MEAN CORP HGB CONCENTRATION 32.8 g/dL (33-36.5); MEAN CORP VOLUME 71.5 fL (78-100); MONOCYTES # 0.7 10^3/uL (0.3-0.8); MONOCYTES % 8.6 % (5.0-12.0); NEUTROPHIL # 4.5 10^3/uL (1.8-7.7); NEUTROPHILS % 58.1 % (41.0-85.0); PLATELET COUNT 233 10^3/uL (150-400); RED BLOOD CELL 6.18 10^6/uL (4.00-5.20); RED CELL DISTRIBUTION WIDTH 16.5 % (11.5-14.5); WHITE BLOOD CELL 7.7 10^3/uL (4.5-11.0)
[2023-08-11 16:22] LABS: +ADD MANUAL DIFF(NO CHRG) NO
[2023-08-11 16:26] LABS: INFLUENZA VIRUS A ANTIGEN NEGATIVE (NEG); INFLUENZA VIRUS B ANTIGEN NEGATIVE (NEG)
[2023-08-11 16:39] LABS: ALBUMIN(ML) 3.6 g/dL (3.4-5.0); ALBUMIN/GLOBULIN RATIO 0.9; ANION GAP 18.2; BUN/CREATININE RATIO 15.04 (10.0-20.0); CALCIUM 9.9 mg/dL (8.4-10.5); CARBON DIOXIDE 21.6 mmol/L (20.0-32); CREATININE SERUM 1.13 mg/dL (0.59-1.40); EST GFR, NON-AA 47.9 (>/=60); POTASSIUM 3.8 mmol/L (3.6-5.2)
[2023-08-11 17:04] LABS: APPEARANCE,URINE CLEAR; BILIRUBIN,URINE NEGATIVE (NEGATIVE); LEUKOCYTE ESTERASE ,URINE NEGATIVE (NEGATIVE); NITRATE,URINE NEGATIVE (NEGATIVE); PH,URINE 5.5 (4.5-8.0); UA COLOR YELLOW; UROBILINOGEN,URINE 0.2 E.U./dL (0.2)
[2023-08-11] MEDS ORDERED: ZOFRAN ODT SL STA (17:04)
[2023-08-11] MEDS ORDERED: TYLENOL PO STA (17:05)
[2023-08-11] MEDS ORDERED: TYLENOL PO ONE (17:08)
[2023-08-11] MEDS ORDERED: ZOFRAN ODT ONE (17:08)
[2023-08-11 17:54] VITALS: BP 128/78; PULSE 65; RESP 16; O2SAT 95
== END 2023-08-11 17:50 | disposition home or self-care (01) ==
LOC: ER 15:37
DX: K52.9 Noninfective gastroenteritis and colitis, unspecified (principal); E11.9 Type 2 diabetes mellitus without complications; J44.9 Chronic obstructive pulmonary disease, unspecified; Z20.822 Contact with and (suspected) exposure to COVID-19
CPT/HCPCS: 99284; 71046; 81003; 87426; 80053; 85025; 87804 ×2; A9150

== ENCOUNTER → 2024-02-21 | Outpatient (CLI) | payer MEDICARE | END | disposition home or self-care (01) | LOC: RAD 08:20 | PROVIDERS: ATTEND Internal Medicine | DX: Z12.31 Encounter for screening mammogram for malignant neoplasm of breast (principal) | CPT/HCPCS: 77063; 77067 ==